=== PATIENT | female | born 1965 | race American Indian/Alaskan Native ===

== ENCOUNTER 2021-12-13 06:15 | Emergency (ER) | payer SELFPAY ==
[~2021-12-13 06:15] MED LIST: Aspirin 81 MG Tab.Chew PO ONE
[2021-12-13] MEDS: Nitroglycerin 0.4 MG Tab.SL SL PRN ×2 (06:23→06:35)
[2021-12-13] MEDS ORDERED: Ticagrelor 90 MG Tab PO ONE (06:23)
[2021-12-13] MEDS ORDERED: Heparin Sodium 5,000 Units/ML Vial IVPUSH ONE (06:25)
[2021-12-13] MEDS ORDERED: Heparin Sodium/D5W 25,000 UNITS/500 ML BAG IV SCH (06:30)
[2021-12-13] MEDS ORDERED: Heparin Sodium/0.45% NaCl 500 ML IV SCH (06:45)
[2021-12-13 07:22] VITALS: BP 137/100; PULSE 52
== END 2021-12-13 06:50 ==
LOC: FB.ED 06:15
DX: I21.3 ST elevation (STEMI) myocardial infarction of unspecified site (principal); I10 Essential (primary) hypertension; Z79.899 Other long term (current) drug therapy
CPT/HCPCS: 93005; 93010; 96374; 99285; 99285-25; A9270-GY; J1644